=== PATIENT | female | born 1940 | race American Indian/Alaskan Native ===

== ENCOUNTER 2016-05-25 19:35 | Emergency (ER) | payer MEDICARE ==
--- NOTE | 2016-05-25 20:28 | Emergency Department Report ---
Chief Complaint: Weakness Stated Complaint: LEFT SIDE NUMBNESS Time Seen by Provider: 05/25/16 20:14 - HPI History of Present Illness: 75-year-old female presents today with left-sided facial tingling and left arm tightness since 1800 hrs. today. Positive for history of hypertension and is currently on lisinopril and HCTZ. Positive for history of similar symptoms and was diagnosed with hypertension at the time. Denies chest pain, shortness of breath, headache, fever, chills, nausea, vomiting, abdominal pain, visual changes. - ROS Review of Systems: Per HPI - Exam Vital Signs: Vital Signs 05/25/16 20:09 Temperature 98.8 F Pulse Rate 75 Respiratory 16 Rate Blood Pressure 150/77 O2 Sat by Pulse 97 Oximetry Physical Exam: General: 75-year-old female in no acute distress. Well-developed, well- nourished. CV: Regular rate and rhythm. Lungs: Clear to auscultation bilaterally. Mini Neuro: Alert and oriented 3. Symmetrical strength and sensation. No focal neurological deficits noted. GCS at 15. MSE screening note: Focused history and physical exam performed. Due to findings the following was ordered: ED Disposition for MSE Condition: Stable
[2016-05-25 21:03] LABS: White Blood Count 8.8 K/mm3 (4.5-11.0)
[2016-05-25 21:04] LABS: Eosinophils % (Auto) 3.1 % (0.0-4.3); Hematocrit 38.9 % (30.3-42.9); Hemoglobin 13.2 gm/dl (10.1-14.3); Mean Corpuscular HGB Conc 34 % (30-34); Mean Corpuscular Hemoglobin 32 pg (28-32); Mean Corpuscular Volume 93 fl (79-97); Platelet Count 216 K/mm3 (140-440); Red Blood Count 4.16 M/mm3 (3.65-5.03); Red Cell Distribution Width 13.9 % (13.2-15.2)
[2016-05-25 21:22] LABS: Anion Gap 17 mmol/L; BUN/Creatinine Ratio 17.69; Blood Urea Nitrogen 23 mg/dL (7-17); Calcium 9.2 mg/dL (8.4-10.2); Carbon Dioxide 27 mmol/L (22-30); Chloride 99.1 mmol/L (98-107); Glucose 111 mg/dL (65-100); Potassium 4.3 mmol/L (3.6-5.0); Sodium 139 mmol/L (137-145)
--- NOTE | 2016-05-26 02:41 | Admit Criteria Form ---
Admission Criteria Documentation: NEUROLOGY GRG Clinical Indications for Admission to Inpatient Care (Place ' X' for any and all applicable criteria): Hospital admission is needed for appropriate care of the patient because of ANY ONE of the following: [ ]I. New-onset or worsening altered mental status remaining after emergency or observation level care (as appropriate) (9)(10)(11) [ ]II. Severe [employer] infections or inflammatory conditions, including ANY ONE of the following(1)(2)(3): [ ]a) Intracranial abscess [ ]b) Spinal abscess or myelitis [ ]c) Tuberculous or other nonbacterial, nonviral [employer] infection(8) [ ]III. Encephalitis(1)(2)(3) [ ]IV. Status epilepticus or repetitive seizures not controlled with emergent treatment [A] (7)(8) [ ]V. Transient alteration in consciousness with high-risk etiology; examples include (12)(13): [ ]a) Cardiovascular source [ ]b) Cataplexy [ ]. Cerebral aneurysm requiring ANY ONE of the following(14): [ ]a) IV antihypertensives or vasoactive agents [ ]b) Sedation and analgesia for suspected leak [ ]c) Need for external ventricular drainage and cerebral perfusion pressure monitoring [ ]d) Emergent evaluation to determine need for surgical clipping or endovascular coiling by interventional radiology. If surgery is required ( Also use Craniotomy, Supratentorial, for Surgery of Bleeding Intracranial Aneurysm (for bleeding aneurysm) or Craniotomy, Supratentorial (for nonbleeding aneurysm) as appropriate. [ ]VII. Altered mental status that is severe or persistent(16) [ ]VIII New-onset severe neurologic findings requiring inpatient care; examples include: [ ]a) Papilledema [ ]b) Cerebral edema [ ]c) Mass effect on imaging [ X]IX. New-onset severe neurologic symptom requiring inpatient care indicated by ANY ONE of the following: [ ]a) Aphasia(15) [ ]b) Weakness (grade 3 or less) [ ]c) Paralysis (eg, hemiplegia) [ ]d) Spasticity(16) [ ]e) Ataxia(17) [ ]f) Amnesia(18) [ ]g) Involuntary movements(19) [ ]h) Vertigo [X ]i) Other severe neurologic symptom not treatable at alternative level of care (eg, observation care) [ ]X. Guillain-Corea syndrome(20) [ ]XI. Myasthenia gravis crisis or inpatient monitoring need as indicated by ANY ONE of the following(21): [ ]a) Inadequate airway protection [ ]b) Respiratory insufficiency requiring intubation or inpatient. monitoring [ ]c) Progressive dysphagia with failure to thrive [ ]d) Intensive treatment (eg, course of plasmapheresis) with inadequate outpatient situation to monitor patients status [ ]XII. Multiple sclerosis or other acute demyelinating disease requiring inpatient care as indicated by ANY ONE of the following (22)(23): [ ]a) Acute severe deterioration requiring inpatient treatment (eg, IV steroids, plasmapheresis, close observation) [ ]b) Acute complication requiring inpatient care (eg, sepsis, severe decubitus, aspiration) [ ]XIII. Intracranial hypertension (eg, pseudotumor cerebri) requiring inpatient care (eg, acute visual loss, inadequate oral intake) (24) [ ]XIV.Parkinson disease requiring inpatient care (Also use Optimal Recovery Care Criteria or General Recovery Criteria as appropriate) indicated by ANY ONE of the following(25): [ ]a) Infection (eg, aspiration pneumonia) not treatable at alternative level of care [ ]b) Volume depletion not responsive to emergency and observation care treatment (as appropriate) [ ]c) Life-threatening agitation or psychotic behavior not treatable on emergency, observation care, or alternative level (eg, residential) basis [ ]d) Severe medication withdrawal effects (eg, freezing, neuroleptic malignant syndrome) not responsive to emergency and observation care treatment (as appropriate) [ ]e) Other severe manifestation not treatable at alternative level of care [ ]XV.Amyotrophic lateral sclerosis with inpatient care needs as indicated by ANY ONE of the following(26): [ ]a) Acute complications requiring inpatient care (Use Optimal Recovery Care Criteria or General Recovery Criteria as appropriate); examples include: [ ]i) Aspiration pneumonia [ ]ii) Sepsis [ ]b) Dehydration or hypovolemia (not responsive to emergency and observation care treatment as appropriate) AND artificial support desired [ ]c) Inadequate airway protection AND artificial support desired [ ]d) Severe ventilatory insufficiency AND artificial support desired [ ]XVI.Severe myopathy, neuropathy, or other neuromuscular disease as indicated by ANY ONE of the following: [ ]a) New-onset severe diffuse weakness (eg, strength 3/5 or less) [ ]b) Severe dysphagia [ ]c) Dyspnea at rest or with minimal exertion (new) [ ]d) Inadequate airway protection [ ]e) Inadequate ventilation as indicated by ANY ONE of the following : [ ]i) Partial pressure of carbon dioxide greater than 44 mm Hg (5.9 kPa) (new) [ ]ii) Reduced peak expiratory flow rate (new) [ ]iii) Vital capacity less than 50% of predicted ( less than 15 mL/kg) [ ]iv) Peak inspiratory force less negative than -30 cm H20 (-2942 Pa) [ ]XVII.Complications of congenital or degenerative disease (eg, infection, seizures, dehydration, injury) not responsive to emergency and observation care treatment (as appropriate ) [C](16)(29)(30) [ ]XVIII.Suspected or confirmed nerve or muscle toxic injury, including ANY ONE of the following: [ ]a) Rhabdomyolysis(31) [ ]b) Botulism(32) [ ]c) Other severe toxin-induced sign or symptom [ ]XIX. Neurologic trauma requiring inpatient treatment (medical) indicated by ANY ONE of the following(33)(34): [ ]a) Vital signs or neurologic signs more frequently than every 4 hours [ ]b) Hyperosmolar therapy [ ]c) Respiratory monitoring [ ]d) Intracranial pressure monitoring and treatment [ ]e) Stabilization and immobilization device placement (eg, braces, body jacket) [ ]f) Intubation & mechanical ventilation for airway protection or therapeutic hyperventilation [ ]g) Other treatment or monitoring needed that requires inpatient level of care [ ]XX.Complications of neurologic devices (eg, ventricular shunt, neurostimulator) requiring ANY ONE of the following(35)(36): [ ]a) IV antibiotics with monitoring while awaiting culture results [ ]b) Monitoring for hydrocephalus [ ]XXI Vasculitis with ANY ONE of the following(4)(5): [ ]a) Altered mental status [ ]b) Psychosis [ ]c) Seizures [ ]XXII. Neurology condition and ALL of the following: [ ]a) Symptom or finding for which emergency and observation care have failed or are not considered appropriate (Use General Criteria: Observation Care as appropriate) [ ]b) Presence of ANY ONE of the following: [ ]i) A General Admission Criteria [ ]ii A Pediatric General Admission Criteria The original [facility] content created by [facility] has been revised. The portions of the content which have been revised are identified through the use of italic text or in bold, and [facility] has neither reviewed nor approved the modified material. All other unmodified content is copyright [facility] Please see references footnoted in the original [facility] edition 2016 Admission Criteria Met: Pending
--- NOTE | 2016-05-26 08:23 | Emergency Department Report ---
HPI - General Chief Complaint: Weakness Time Seen by Provider: 05/25/16 20:14 - HPI HPI: The patient is a 75-year-old female who presents for evaluation of paresthesias to the proximal left arm yesterday at 6 PM, constant for 6 hours, moderate to severe, radiating down the arm distally. The patient states that her symptoms have been resolved for the past 7-8 hours prior to my evaluation. She states that she is asymptomatic and feels back to her normal baseline. The patient denies fever, head injury, headache, neck pain, neck stiffness, vision or hearing changes, smell or taste changes, facial drooping, slurred speech, seizure-like activity, urine or bowel incontinence or retention, or other focal neurological deficit. ED Review of Systems ROS: Stated complaint: LEFT SIDE NUMBNESS Other details as noted in HPI Constitutional: denies: fever ENT: denies: throat or neck pain Respiratory: denies: cough, shortness of breath Cardiovascular: denies: chest pain Endocrine: denies unexplained weight loss or gain Gastrointestinal: denies: abdominal pain, nausea Genitourinary: denies: dysuria Musculoskeletal: denies: leg swelling Skin: denies: rash Neurological: reports parasthesia denies: headache Hematological/Lymphatic: denies: easy bleeding or easy bruising Psych: denies sadness or hopelessness Physical Exam - Physical Exam Vital Signs: Vital Signs 05/25/16 05/26/16 20:09 02:16 Temperature 98.8 F 98.2 F Pulse Rate 75 70 Respiratory 16 20 Rate Blood Pressure 150/77 Blood Pressure 153/81 [Right] O2 Sat by Pulse 97 100 Oximetry Physical Exam: General: well-nourished, well-developed, no acute distress Head: Normocephalic, atraumatic Eyes: normal sclera ENT: Mucous membranes are pink and moist Neck: trachea midline, neck supple, No neck stiffness, no cervical adenopathy Respiratory: Breath sounds equal bilaterally, no wheezing, rales, or rhonchi Cardio: S1 and S2 present, no murmurs, rubs, gallops, capillary refill is brisk Abdomen: Normoactive bowel sounds, soft abdomen, no rigidity, no guarding or rebound tenderness Musc: No pitting edema Skin: No rash Neuro: Alert oriented 3, normal cognition, CN II through XII intact, no sensation deficit in the face bilaterally, no facial drooping, normal speech, no drift, no sensation or motor deficit in the arms or legs, reflexes are 2+ and symmetric on DTR testing, no obvious gross coordination deficit with finger to nose testing, Romberg negative, patient able to ablate without abnormal gait , no neuro deficits on examination Psych: Normal affect ED Course Vital Signs 05/25/16 05/26/16 20:09 02:16 Temperature 98.8 F 98.2 F Pulse Rate 75 70 Respiratory 16 20 Rate Blood Pressure 150/77 Blood Pressure 153/81 [Right] O2 Sat by Pulse 97 100 Oximetry ED Medical Decision Making - Lab Data Result diagrams: 05/25/16 20:41 05/25/16 20:41 - Medical Decision Making The patient was seen and examined by myself. The patient is placed on a compliance monitor and continuous pulse ox. On initial evaluation, the patient was found to be in no distress. Evaluation orders were placed. Lab results are unremarkable. The patient was reevaluated and reported that she remained asymptomatic throughout ED course. The patient is stable for discharge with outpatient follow-up. The patient is given follow-up and return instructions. The patient expressed understanding and agreed with the plan. The patient is discharged in stable condition. Critical care attestation.: If time is entered above; I have spent that time in minutes in the direct care of this critically ill patient, excluding procedure time. ED Disposition Clinical Impression: Hypertensive urgency, Arm paresthesia, left Disposition: DISCHARGED TO HOME OR SELFCARE Is pt being admited?: No Does the pt Need Aspirin: No Condition: Stable Instructions: Chronic Hypertension (ED), Paresthesia (ED) Referrals: PRIMARY CARE, [Primary Care Provider] - 3-5 Days Time of Disposition: 08:16
[2016-05-26 08:50] VITALS: BP 139/72
== END 2016-05-26 08:50 | disposition home or self-care (01) ==
LOC: ED 19:35
DX: I10 Essential (primary) hypertension (principal); R20.9 Unspecified disturbances of skin sensation
CPT/HCPCS: 36415; 80048; 84484; 85025